=== PATIENT | female | born 1960 ===

== ENCOUNTER 2018-01-31 16:08 | Inpatient (IN) | payer OTHER ==
[2018-01-31 19:42] LABS: ADD MAN DIFF? NO
[2018-01-31] MEDS: VANCOMYCIN 1 GM (PMX) 250 ML IVPB (19:49)
[2018-01-31] MEDS: SODIUM CHLORIDE 0.9% 1L BAG IV* (19:49)
[2018-01-31] MEDS: morphine 4 MG/ML VIAL IV (19:50)
[2018-01-31] MEDS: ONDANSETRON 4 MG INJ IV (19:50)
[2018-01-31] MEDS: PIPER-TAZO 3.375 GM IV (PMX) 100 ML IVPB (19:50)
[2018-01-31 19:53] LABS: BASOPHILS % 0.2 % (0.0-2.0); EOSINOPHILS % 0.3 % (0.0-7.0); HEMATOCRIT 43.7 % (37.0-47.0); HEMOGLOBIN 14.3 g/dl (12.0-16.0); LYMPHOCYTES # 1.9 10^3/ul (0.8-2.9); LYMPHOCYTES % 18.7 % (15.0-51.0); MEAN CORPUSCULAR HEMOGLOBIN 30.6 pg (29.0-33.0); MEAN CORPUSCULAR HGB CONC 32.7 g/dl (32.0-37.0); MEAN CORPUSCULAR VOLUME 93.6 fl (82.0-101.0); MEAN PLATELET VOLUME 9.7 fl (7.4-10.4); MONOCYTE # 0.6 10^3/ul (0.3-0.9); MONOCYTES % 5.7 % (0.0-11.0); NEUTROPHIL # 7.5 10^3/ul (1.6-7.5); NEUTROPHILS % 74.6 % (39.0-77.0); PLATELET COUNT 264 10^3/UL (140-415); RED BLOOD COUNT 4.67 10^6/ul (4.20-5.40); RED CELL DISTRIBUTION WIDTH 14.3 % (11.5-14.5)
[2018-01-31 20:06] LABS: LACTIC ACID 1.9 mmol/L (0.5-2.0)
[2018-01-31 20:12] LABS: ALANINE AMINOTRANSFERASE 30 IU/L (13-69); ALBUMIN 3.7 g/dl (3.3-4.9); ALKALINE PHOSPHATASE 103 IU/L (42-121); ANION GAP 15 (8-16); ASPARTATE AMINO TRANSFERASE 21 IU/L (15-46); BILIRUBIN,INDIRECT 0.1 mg/dl (0-1.1); BILIRUBIN,TOTAL 0.1 mg/dl (0.2-1.3); BLOOD UREA NITROGEN 17 mg/dl (7-20); CALCIUM 8.9 mg/dl (8.4-10.2); CARBON DIOXIDE 26 mmol/L (21-31); CHLORIDE 106 mmol/L (97-110); CREATININE 0.51 mg/dl (0.44-1.00); GLUCOSE 335 mg/dl (70-220); POTASSIUM 4.2 mmol/L (3.5-5.1); SODIUM 143 mmol/L (135-144); TOTAL PROTEIN 7.4 g/dl (6.1-8.1)
[2018-01-31 20:21] LABS: INR 0.93; PARTIAL THROMBOPLASTIN TIME 23.5 Sec (25.0-35.0); PROTIME 12.5 Sec (11.9-14.9)
[2018-01-31 20:23] LABS: TROPONIN-I < 0.010 ng/ml (0.000-0.120)
[2018-01-31] MEDS ORDERED: ACETAMINOPHEN 325 MG TAB PO (20:30)
[2018-01-31] MEDS ORDERED: ONDANSETRON 4 MG INJ IV (20:30)
[2018-02-01] MEDS ORDERED: HYDROCODONE/APAP (5/325) TAB PO (00:30)
[2018-02-01] MEDS ORDERED: NON-FORMULARY/PATIENT OWN MED (Carvedilol* 25 MG) PO (00:30)
[2018-02-01] MEDS: morphine 2 MG INJ IV ×4 (01:10→21:46)
[2018-02-01 02:03] LABS: LACTIC ACID 1.2 mmol/L (0.5-2.0)
[2018-02-01] MEDS ORDERED: PENDING SANTYL ORDER FOR WOUND CARE XX (03:00)
[2018-02-01] MEDS: VANCOMYCIN 1.25 GM in SOD CHLORIDE 0.9% 250 ML IVPB ×2 (05:31→17:35)
[2018-02-01 07:51] LABS: ADD MAN DIFF? NO
[2018-02-01 07:56] LABS: BASOPHILS % 0.2 % (0.0-2.0); EOSINOPHILS # 0.1 10^3/ul (0.0-0.5); EOSINOPHILS % 0.6 % (0.0-7.0); HEMATOCRIT 38.3 % (37.0-47.0); HEMOGLOBIN 12.2 g/dl (12.0-16.0); LYMPHOCYTES # 2.4 10^3/ul (0.8-2.9); LYMPHOCYTES % 23.5 % (15.0-51.0); MEAN CORPUSCULAR HEMOGLOBIN 30.5 pg (29.0-33.0); MEAN CORPUSCULAR HGB CONC 31.9 g/dl (32.0-37.0); MEAN CORPUSCULAR VOLUME 95.8 fl (82.0-101.0); MEAN PLATELET VOLUME 9.7 fl (7.4-10.4); MONOCYTE # 0.7 10^3/ul (0.3-0.9); MONOCYTES % 6.7 % (0.0-11.0); NEUTROPHILS % 68.7 % (39.0-77.0); PLATELET COUNT 220 10^3/UL (140-415); RED CELL DISTRIBUTION WIDTH 14.6 % (11.5-14.5)
[2018-02-01 07:56] LABS: WHITE BLOOD COUNT 10.1 10^3/ul (4.8-10.8)
[2018-02-01] MEDS: INSULIN ASPART [NOVOLOG] 3 ML PEN SC ×5 (07:58→20:53)
[2018-02-01] MEDS: INSULIN GLARGINE [LANTus] (100 UNITS/ML) SYG SC ×2 (07:59→20:28)
[2018-02-01 08:24] LABS: ALANINE AMINOTRANSFERASE 25 IU/L (13-69); ALBUMIN 2.8 g/dl (3.3-4.9); ALBUMIN/GLOBULIN RATIO 0.87; ALKALINE PHOSPHATASE 65 IU/L (42-121); ANION GAP 9 (8-16); ASPARTATE AMINO TRANSFERASE 19 IU/L (15-46); BILIRUBIN,INDIRECT 0.1 mg/dl (0-1.1); BILIRUBIN,TOTAL 0.1 mg/dl (0.2-1.3); BLOOD UREA NITROGEN 14 mg/dl (7-20); CALCIUM 8.1 mg/dl (8.4-10.2); CARBON DIOXIDE 27 mmol/L (21-31); CHLORIDE 112 mmol/L (97-110); CREATININE 0.58 mg/dl (0.44-1.00); GLUCOSE 155 mg/dl (70-220); POTASSIUM 3.8 mmol/L (3.5-5.1); SODIUM 144 mmol/L (135-144)
[2018-02-01 08:38] LABS: HEMOGLOBIN A1C 7.9 % (0-5.9)
[2018-02-01] MEDS: FOLIC ACID 1 MG TAB PO (08:39)
[2018-02-01] MEDS: CEFEPIME 1GM/50 ML (PMX) 50 ML IVPB ×2 (08:39→20:42)
[2018-02-01] MEDS ORDERED: VANCOMYCIN IV PER PHARMACY XX (09:00)
[2018-02-01 10:24] LABS: ADD UMIC NO; UR ASCORBIC ACID NEGATIVE (NEGATIVE); UR BILIRUBIN (Dip) NEGATIVE (NEGATIVE); UR BLOOD (Dip) NEGATIVE (NEGATIVE); UR CLARITY CLEAR (CLEAR); UR COLOR YELLOW (YELLOW); UR GLUCOSE (Dip) NEGATIVE (NEGATIVE); UR KETONES (Dip) NEGATIVE (NEGATIVE); UR LEUKOCYTE ESTERASE (Dip) NEGATIVE Leu/ul (NEGATIVE); UR NITRITE (Dip) NEGATIVE (NEGATIVE); UR TOTAL PROTEIN (Dip) NEGATIVE (NEGATIVE); UR UROBILINOGEN (Dip) NEGATIVE (NEGATIVE)
[2018-02-01] MEDS ORDERED: GLUCOSE GEL 15 GRAM TUBE PO ×2 (10:30→10:31)
[2018-02-01] MEDS ORDERED: GLUCAGON 1 MG INJ IM (10:30)
[2018-02-01] MEDS ORDERED: GLUCOSE GEL 15 GRAM TUBE BUCCAL (10:30)
[2018-02-01] MEDS ORDERED: DEXTROSE 50% 50 ML SYRINGE IV ×2 (10:30)
[2018-02-01] MEDS: LOSARTAN 25 MG TAB PO (15:21)
[2018-02-01] MEDS ORDERED: morphine LIQ (10 MG/5 ML) CUP PO (17:30)
[2018-02-01] MEDS: TETANUS IMMUNE GLOB 250 UNIT SYG IM (17:46)
[2018-02-01] MEDS ORDERED: INSULIN ASPART [NOVOLOG] 3 ML PEN SC (18:05)
[2018-02-01] MEDS ORDERED: HEPARIN 5,000 UNIT/0.5 ML VIAL (19:56)
[2018-02-01] MEDS ORDERED: LACTOBACILLUS RHAMNOSUS CAP (19:56)
[2018-02-01] MEDS: LACTOBACILLUS RHAMNOSUS CAP PO (20:42)
[2018-02-01] MEDS: HEPARIN 5,000 UNIT/0.5 ML VIAL SC (20:42)
[2018-02-01] MEDS: LATANOPROST 0.005% 2.5 ML OPH BOTH EYES (22:41)
[2018-02-01] MEDS: NYSTATIN 30 GM POWDER BTL TOP (22:43)
[2018-02-01] MEDS: COLLAGENASE 5 GM (UD JAR) TOP (22:43)
[2018-02-02] MEDS: ACCU-CHEK XX (02:00)
[2018-02-02] MEDS ORDERED: ACCU-CHEK XX (02:00)
[2018-02-02 06:02] LABS: ADD MAN DIFF? NO
[2018-02-02 06:03] LABS: BASOPHILS % 0.2 % (0.0-2.0); EOSINOPHILS # 0.1 10^3/ul (0.0-0.5); EOSINOPHILS % 0.8 % (0.0-7.0); HEMATOCRIT 40.3 % (37.0-47.0); HEMOGLOBIN 12.8 g/dl (12.0-16.0); LYMPHOCYTES # 2.7 10^3/ul (0.8-2.9); LYMPHOCYTES % 30.1 % (15.0-51.0); MEAN CORPUSCULAR HEMOGLOBIN 30.5 pg (29.0-33.0); MEAN CORPUSCULAR HGB CONC 31.8 g/dl (32.0-37.0); MEAN CORPUSCULAR VOLUME 96.2 fl (82.0-101.0); MEAN PLATELET VOLUME 9.4 fl (7.4-10.4); MONOCYTE # 0.7 10^3/ul (0.3-0.9); MONOCYTES % 7.7 % (0.0-11.0); NEUTROPHIL # 5.4 10^3/ul (1.6-7.5); NEUTROPHILS % 60.6 % (39.0-77.0); PLATELET COUNT 211 10^3/UL (140-415); RED BLOOD COUNT 4.19 10^6/ul (4.20-5.40); RED CELL DISTRIBUTION WIDTH 14.9 % (11.5-14.5)
[2018-02-02 06:03] LABS: WHITE BLOOD COUNT 8.9 10^3/ul (4.8-10.8)
[2018-02-02 06:28] LABS: ANION GAP 8 (8-16); BLOOD UREA NITROGEN 17 mg/dl (7-20); CALCIUM 8.9 mg/dl (8.4-10.2); CARBON DIOXIDE 30 mmol/L (21-31); CHLORIDE 110 mmol/L (97-110); CREATININE 0.58 mg/dl (0.44-1.00); GLUCOSE 120 mg/dl (70-220); POTASSIUM 3.9 mmol/L (3.5-5.1); SODIUM 144 mmol/L (135-144)
[2018-02-02 06:37] LABS: VANCOMYCIN,TROUGH 12.3 ug/ml (10.0-20.0)
[2018-02-02] MEDS: morphine 2 MG INJ IV ×2 (06:45→20:46)
[2018-02-02] MEDS: INSULIN ASPART [NOVOLOG] 3 ML PEN SC ×7 (08:00→21:00)
[2018-02-02] MEDS: VANCOMYCIN 1.25 GM in SOD CHLORIDE 0.9% 250 ML IVPB ×2 (08:14→17:10)
[2018-02-02] MEDS: HEPARIN 5,000 UNIT/0.5 ML VIAL SC ×2 (08:16→21:28)
[2018-02-02] MEDS: LOSARTAN 25 MG TAB PO (08:17)
[2018-02-02] MEDS: LACTOBACILLUS RHAMNOSUS CAP PO ×2 (08:17→21:27)
[2018-02-02] MEDS: FOLIC ACID 1 MG TAB PO (08:17)
[2018-02-02] MEDS: CEFEPIME 1GM/50 ML (PMX) 50 ML IVPB ×2 (08:18→21:25)
[2018-02-02] MEDS: NYSTATIN 30 GM POWDER BTL TOP ×2 (12:00→21:35)
[2018-02-02] MEDS: COLLAGENASE 5 GM (UD JAR) TOP (12:11)
[2018-02-02] MEDS: DICLOFENAC SODIUM 1% GEL 100 GM TUBE TP ×2 (17:06→21:25)
[2018-02-02] MEDS: INSULIN GLARGINE [LANTus] (100 UNITS/ML) SYG SC (21:26)
[2018-02-02] MEDS: LATANOPROST 0.005% 2.5 ML OPH BOTH EYES (21:36)
[2018-02-03] MEDS: ACCU-CHEK XX ×3 (02:00→21:00)
[2018-02-03] MEDS: morphine 2 MG INJ IV (06:11)
[2018-02-03] MEDS: VANCOMYCIN 1.25 GM in SOD CHLORIDE 0.9% 250 ML IVPB ×2 (06:11→17:10)
[2018-02-03 06:26] LABS: ADD MAN DIFF? NO
[2018-02-03 06:27] LABS: BASOPHILS % 0.2 % (0.0-2.0); EOSINOPHILS # 0.1 10^3/ul (0.0-0.5); EOSINOPHILS % 0.6 % (0.0-7.0); HEMATOCRIT 39.3 % (37.0-47.0); HEMOGLOBIN 12.9 g/dl (12.0-16.0); LYMPHOCYTES # 2.1 10^3/ul (0.8-2.9); LYMPHOCYTES % 24.5 % (15.0-51.0); MEAN CORPUSCULAR HEMOGLOBIN 30.9 pg (29.0-33.0); MEAN CORPUSCULAR HGB CONC 32.8 g/dl (32.0-37.0); MEAN CORPUSCULAR VOLUME 94.2 fl (82.0-101.0); MEAN PLATELET VOLUME 9.7 fl (7.4-10.4); MONOCYTE # 0.7 10^3/ul (0.3-0.9); MONOCYTES % 8.1 % (0.0-11.0); NEUTROPHIL # 5.8 10^3/ul (1.6-7.5); NEUTROPHILS % 66.3 % (39.0-77.0); PLATELET COUNT 220 10^3/UL (140-415); RED BLOOD COUNT 4.17 10^6/ul (4.20-5.40); RED CELL DISTRIBUTION WIDTH 14.6 % (11.5-14.5)
[2018-02-03 06:27] LABS: WHITE BLOOD COUNT 8.7 10^3/ul (4.8-10.8)
[2018-02-03 06:48] LABS: PROTIME 13.3 Sec (11.9-14.9)
[2018-02-03 07:02] LABS: ANION GAP 9 (8-16); BLOOD UREA NITROGEN 11 mg/dl (7-20); CALCIUM 8.5 mg/dl (8.4-10.2); CARBON DIOXIDE 31 mmol/L (21-31); CHLORIDE 104 mmol/L (97-110); CREATININE 0.49 mg/dl (0.44-1.00); GLUCOSE 170 mg/dl (70-220); SODIUM 141 mmol/L (135-144)
[2018-02-03] MEDS: INSULIN ASPART [NOVOLOG] 3 ML PEN SC ×7 (08:00→20:45)
[2018-02-03] MEDS: HEPARIN 5,000 UNIT/0.5 ML VIAL SC ×2 (08:08→20:48)
[2018-02-03] MEDS: DICLOFENAC SODIUM 1% GEL 100 GM TUBE TP ×4 (08:12→20:48)
[2018-02-03] MEDS: CEFEPIME 1GM/50 ML (PMX) 50 ML IVPB ×2 (08:14→22:13)
[2018-02-03] MEDS: FOLIC ACID 1 MG TAB PO (08:15)
[2018-02-03] MEDS: LOSARTAN 25 MG TAB PO (08:15)
[2018-02-03] MEDS: LACTOBACILLUS RHAMNOSUS CAP PO ×2 (08:15→20:46)
[2018-02-03] MEDS: COLLAGENASE 5 GM (UD JAR) TOP (08:15)
[2018-02-03] MEDS: NYSTATIN 30 GM POWDER BTL TOP ×2 (08:26→20:49)
[2018-02-03] MEDS: POTASSIUM CHLORIDE 100 ML IVPB ×3 (14:06→22:59)
[2018-02-03] MEDS: POTASSIUM CHLORIDE (SR) 20 MEQ TAB PO (14:06)
[2018-02-03] MEDS: metFORMIN 500 MG TAB PO ×2 (14:06→17:05)
[2018-02-03] MEDS: LATANOPROST 0.005% 2.5 ML OPH BOTH EYES (20:46)
[2018-02-03] MEDS: INSULIN GLARGINE [LANTus] (100 UNITS/ML) SYG SC (20:46)
[2018-02-04] MEDS: ACCU-CHEK XX ×5 (02:00→20:30)
[2018-02-04 05:18] LABS: ADD MAN DIFF? NO
[2018-02-04] MEDS: VANCOMYCIN 1.25 GM in SOD CHLORIDE 0.9% 250 ML IVPB ×2 (05:30→18:07)
[2018-02-04 05:35] LABS: BASOPHILS % 0.1 % (0.0-2.0); EOSINOPHILS # 0.1 10^3/ul (0.0-0.5); EOSINOPHILS % 0.9 % (0.0-7.0); HEMOGLOBIN 12.4 g/dl (12.0-16.0); LYMPHOCYTES % 26.7 % (15.0-51.0); MEAN CORPUSCULAR HEMOGLOBIN 30.8 pg (29.0-33.0); MEAN CORPUSCULAR HGB CONC 32.6 g/dl (32.0-37.0); MEAN CORPUSCULAR VOLUME 94.5 fl (82.0-101.0); MEAN PLATELET VOLUME 9.8 fl (7.4-10.4); MONOCYTE # 0.6 10^3/ul (0.3-0.9); NEUTROPHIL # 4.9 10^3/ul (1.6-7.5); PLATELET COUNT 218 10^3/UL (140-415); RED BLOOD COUNT 4.02 10^6/ul (4.20-5.40); RED CELL DISTRIBUTION WIDTH 14.6 % (11.5-14.5)
[2018-02-04 05:35] LABS: WHITE BLOOD COUNT 7.7 10^3/ul (4.8-10.8)
[2018-02-04 06:07] LABS: ALANINE AMINOTRANSFERASE 35 IU/L (13-69); ALBUMIN 2.6 g/dl (3.3-4.9); ALBUMIN/GLOBULIN RATIO 0.86; ALKALINE PHOSPHATASE 62 IU/L (42-121); ANION GAP 8 (8-16); ASPARTATE AMINO TRANSFERASE 28 IU/L (15-46); BILIRUBIN,INDIRECT 0.4 mg/dl (0-1.1); BILIRUBIN,TOTAL 0.4 mg/dl (0.2-1.3); BLOOD UREA NITROGEN 12 mg/dl (7-20); CALCIUM 8.5 mg/dl (8.4-10.2); CARBON DIOXIDE 29 mmol/L (21-31); CHLORIDE 108 mmol/L (97-110); CREATININE 0.75 mg/dl (0.44-1.00); GLUCOSE 154 mg/dl (70-220); POTASSIUM 3.5 mmol/L (3.5-5.1); SODIUM 141 mmol/L (135-144); TOTAL PROTEIN 5.6 g/dl (6.1-8.1)
[2018-02-04 06:25] LABS: MAGNESIUM 1.9 mg/dl (1.7-2.5)
[2018-02-04] MEDS: INSULIN ASPART [NOVOLOG] 3 ML PEN SC ×7 (07:51→20:26)
[2018-02-04] MEDS: FOLIC ACID 1 MG TAB PO (08:17)
[2018-02-04] MEDS: metFORMIN 500 MG TAB PO ×2 (08:17→17:18)
[2018-02-04] MEDS: HEPARIN 5,000 UNIT/0.5 ML VIAL SC ×2 (08:17→20:25)
[2018-02-04] MEDS: LACTOBACILLUS RHAMNOSUS CAP PO ×2 (08:17→20:23)
[2018-02-04] MEDS: COLLAGENASE 5 GM (UD JAR) TOP (08:18)
[2018-02-04] MEDS: DICLOFENAC SODIUM 1% GEL 100 GM TUBE TP ×4 (08:19→20:29)
[2018-02-04] MEDS: NYSTATIN 30 GM POWDER BTL TOP ×2 (08:19→20:29)
[2018-02-04] MEDS: CEFEPIME 1GM/50 ML (PMX) 50 ML IVPB ×2 (08:19→21:21)
[2018-02-04] MEDS: LOSARTAN 25 MG TAB PO (08:19)
[2018-02-04] MEDS: MELOXICAM 15 MG TAB PO (11:54)
[2018-02-04] MEDS: POTASSIUM CHLORIDE (SR) 20 MEQ TAB PO (11:54)
[2018-02-04] MEDS: DOCUSATE SODIUM 100 MG CAP PO (18:45)
[2018-02-04] MEDS: INSULIN GLARGINE [LANTus] (100 UNITS/ML) SYG SC (20:20)
[2018-02-04] MEDS: LATANOPROST 0.005% 2.5 ML OPH BOTH EYES (20:25)
[2018-02-04] MEDS: morphine 2 MG INJ IV (20:27)
[2018-02-05] MEDS: ACCU-CHEK XX ×5 (02:00→20:30)
[2018-02-05 06:39] LABS: VANCOMYCIN,TROUGH 24.4 ug/ml (10.0-20.0)
[2018-02-05] MEDS: INSULIN ASPART [NOVOLOG] 3 ML PEN SC ×7 (08:00→20:30)
[2018-02-05] MEDS: CEFEPIME 1GM/50 ML (PMX) 50 ML IVPB ×2 (08:01→20:29)
[2018-02-05] MEDS: DICLOFENAC SODIUM 1% GEL 100 GM TUBE TP ×4 (08:01→20:23)
[2018-02-05] MEDS: FOLIC ACID 1 MG TAB PO (08:02)
[2018-02-05] MEDS: metFORMIN 500 MG TAB PO ×2 (08:02→17:17)
[2018-02-05] MEDS: LACTOBACILLUS RHAMNOSUS CAP PO ×2 (08:02→20:20)
[2018-02-05] MEDS: HEPARIN 5,000 UNIT/0.5 ML VIAL SC ×2 (08:04→20:20)
[2018-02-05] MEDS: COLLAGENASE 5 GM (UD JAR) TOP (08:07)
[2018-02-05] MEDS: LOSARTAN 50 MG TAB PO (08:07)
[2018-02-05] MEDS: NYSTATIN 30 GM POWDER BTL TOP ×2 (08:07→20:22)
[2018-02-05] MEDS: INDOMETHACIN 25 MG PO ×2 (12:42→20:22)
[2018-02-05] MEDS: LACTULOSE 30ML CUP PO ×2 (15:10→20:20)
[2018-02-05] MEDS: VANCOMYCIN 1.5 GM in SOD CHLORIDE 0.9% 250 ML IVPB (15:11)
[2018-02-05] MEDS: FAMOTIDINE 20 MG TAB PO (20:21)
[2018-02-05] MEDS: LATANOPROST 0.005% 2.5 ML OPH BOTH EYES (20:22)
[2018-02-05] MEDS: DOCUSATE SODIUM 100 MG CAP PO (20:22)
[2018-02-05] MEDS: traMADol 50 MG TAB PO (20:25)
[2018-02-05] MEDS: INSULIN GLARGINE [LANTus] (100 UNITS/ML) SYG SC (20:28)
[2018-02-06] MEDS: ACCU-CHEK XX ×5 (01:15→21:00)
[2018-02-06 05:28] LABS: ADD MAN DIFF? NO
[2018-02-06 05:33] LABS: WHITE BLOOD COUNT 5.2 10^3/ul (4.8-10.8)
[2018-02-06 05:33] LABS: BASOPHILS % 0.2 % (0.0-2.0); EOSINOPHILS # 0.1 10^3/ul (0.0-0.5); EOSINOPHILS % 1.5 % (0.0-7.0); HEMATOCRIT 36.2 % (37.0-47.0); HEMOGLOBIN 11.6 g/dl (12.0-16.0); LYMPHOCYTES # 1.5 10^3/ul (0.8-2.9); LYMPHOCYTES % 28.6 % (15.0-51.0); MEAN CORPUSCULAR HEMOGLOBIN 30.2 pg (29.0-33.0); MEAN CORPUSCULAR VOLUME 94.3 fl (82.0-101.0); MEAN PLATELET VOLUME 9.9 fl (7.4-10.4); MONOCYTE # 0.5 10^3/ul (0.3-0.9); NEUTROPHIL # 3.1 10^3/ul (1.6-7.5); NEUTROPHILS % 59.5 % (39.0-77.0); PLATELET COUNT 218 10^3/UL (140-415); RED BLOOD COUNT 3.84 10^6/ul (4.20-5.40); RED CELL DISTRIBUTION WIDTH 14.2 % (11.5-14.5)
[2018-02-06 06:05] LABS: ANION GAP 11 (8-16); BLOOD UREA NITROGEN 11 mg/dl (7-20); CALCIUM 8.4 mg/dl (8.4-10.2); CARBON DIOXIDE 25 mmol/L (21-31); CHLORIDE 106 mmol/L (97-110); CREATININE 0.72 mg/dl (0.44-1.00); GLUCOSE 116 mg/dl (70-220); MAGNESIUM 1.6 mg/dl (1.7-2.5); POTASSIUM 3.8 mmol/L (3.5-5.1); SODIUM 138 mmol/L (135-144)
[2018-02-06] MEDS: INSULIN ASPART [NOVOLOG] 3 ML PEN SC ×7 (07:58→21:00)
[2018-02-06] MEDS: HEPARIN 5,000 UNIT/0.5 ML VIAL SC ×2 (08:01→21:04)
[2018-02-06] MEDS: CEFEPIME 1GM/50 ML (PMX) 50 ML IVPB ×2 (08:01→21:01)
[2018-02-06] MEDS: LACTOBACILLUS RHAMNOSUS CAP PO ×2 (08:02→21:05)
[2018-02-06] MEDS: LACTULOSE 30ML CUP PO ×2 (08:02→21:04)
[2018-02-06] MEDS: LOSARTAN 50 MG TAB PO (08:02)
[2018-02-06] MEDS: metFORMIN 500 MG TAB PO ×2 (08:02→17:22)
[2018-02-06] MEDS: FAMOTIDINE 20 MG TAB PO ×2 (08:02→21:05)
[2018-02-06] MEDS: FOLIC ACID 1 MG TAB PO (08:03)
[2018-02-06] MEDS: NYSTATIN 30 GM POWDER BTL TOP ×2 (08:03→21:10)
[2018-02-06] MEDS: DOCUSATE SODIUM 100 MG CAP PO ×2 (08:03→21:05)
[2018-02-06] MEDS: DICLOFENAC SODIUM 1% GEL 100 GM TUBE TP ×4 (08:03→21:05)
[2018-02-06] MEDS: COLLAGENASE 5 GM (UD JAR) TOP (08:03)
[2018-02-06] MEDS: MAGNESIUM SULFATE 2 GM/50 ML 50 ML IVPB (08:46)
[2018-02-06] MEDS: morphine 2 MG INJ IV (10:45)
[2018-02-06] MEDS: ONDANSETRON 4 MG INJ IV (12:28)
[2018-02-06] MEDS: VANCOMYCIN 1.5 GM in SOD CHLORIDE 0.9% 250 ML IVPB (15:33)
[2018-02-06] MEDS: LIDOCAINE 1% (MPF) 5 ML VIAL SC (16:05)
[2018-02-06] MEDS: SOD CHLORIDE 0.9% 100 ML (16:40)
[2018-02-06] MEDS: INSULIN GLARGINE [LANTus] (100 UNITS/ML) SYG SC (21:04)
[2018-02-06] MEDS: LATANOPROST 0.005% 2.5 ML OPH BOTH EYES (21:05)
[2018-02-06] MEDS: INDOMETHACIN 25 MG PO (21:08)
[2018-02-07] MEDS: ACCU-CHEK XX ×6 (01:41→20:32)
[2018-02-07] MEDS: INSULIN ASPART [NOVOLOG] 3 ML PEN SC ×7 (08:00→20:28)
[2018-02-07] MEDS: LACTOBACILLUS RHAMNOSUS CAP PO ×2 (08:32→20:27)
[2018-02-07] MEDS: DOCUSATE SODIUM 100 MG CAP PO ×2 (08:32→20:27)
[2018-02-07] MEDS: LACTULOSE 30ML CUP PO ×2 (08:32→20:27)
[2018-02-07] MEDS: FAMOTIDINE 20 MG TAB PO ×2 (08:33→20:28)
[2018-02-07] MEDS: metFORMIN 500 MG TAB PO ×2 (08:33→17:27)
[2018-02-07] MEDS: FOLIC ACID 1 MG TAB PO (08:33)
[2018-02-07] MEDS: HEPARIN 5,000 UNIT/0.5 ML VIAL SC ×2 (08:38→20:25)
[2018-02-07] MEDS: CEFEPIME 1GM/50 ML (PMX) 50 ML IVPB ×2 (08:40→20:28)
[2018-02-07] MEDS: LOSARTAN 50 MG TAB PO (08:40)
[2018-02-07] MEDS: NYSTATIN 30 GM POWDER BTL TOP ×2 (09:00→20:30)
[2018-02-07] MEDS: DICLOFENAC SODIUM 1% GEL 100 GM TUBE TP ×5 (09:00→20:31)
[2018-02-07] MEDS: INSULIN GLARGINE [LANTus] (100 UNITS/ML) SYG SC (20:24)
[2018-02-07] MEDS: L ACIDOPHIL/B LACTIS/B LONGUM CAPSULE PO (20:28)
[2018-02-07] MEDS: LATANOPROST 0.005% 2.5 ML OPH BOTH EYES (20:28)
[2018-02-07] MEDS: AMPICILLIN 1 GM/NS (PMX) 50 ML IVPB (21:22)
[2018-02-08] MEDS: AMPICILLIN 1 GM/NS (PMX) 50 ML IVPB ×3 (05:22→22:39)
[2018-02-08] MEDS: INSULIN ASPART [NOVOLOG] 3 ML PEN SC ×7 (08:00→21:00)
[2018-02-08] MEDS: L ACIDOPHIL/B LACTIS/B LONGUM CAPSULE PO ×2 (08:09→21:19)
[2018-02-08] MEDS: FAMOTIDINE 20 MG TAB PO ×2 (08:09→21:20)
[2018-02-08] MEDS: LACTULOSE 30ML CUP PO ×2 (08:09→21:00)
[2018-02-08] MEDS: FOLIC ACID 1 MG TAB PO (08:09)
[2018-02-08] MEDS: metFORMIN 500 MG TAB PO ×2 (08:09→17:33)
[2018-02-08] MEDS: LACTOBACILLUS RHAMNOSUS CAP PO ×2 (08:12→21:19)
[2018-02-08] MEDS: HEPARIN 5,000 UNIT/0.5 ML VIAL SC ×2 (08:13→21:09)
[2018-02-08] MEDS: DICLOFENAC SODIUM 1% GEL 100 GM TUBE TP ×4 (08:14→21:22)
[2018-02-08] MEDS: CEFEPIME 1GM/50 ML (PMX) 50 ML IVPB ×2 (08:14→21:18)
[2018-02-08] MEDS: DOCUSATE SODIUM 100 MG CAP PO ×2 (08:14→21:00)
[2018-02-08] MEDS: NYSTATIN 30 GM POWDER BTL TOP ×2 (08:14→21:22)
[2018-02-08] MEDS: LOSARTAN 50 MG TAB PO (08:16)
[2018-02-08] MEDS: ACCU-CHEK XX ×4 (08:16→21:00)
[2018-02-08] MEDS: INDOMETHACIN 25 MG PO ×2 (08:25→21:33)
[2018-02-08] MEDS: ONDANSETRON 4 MG INJ IV (11:55)
[2018-02-08] MEDS: INSULIN GLARGINE [LANTus] (100 UNITS/ML) SYG SC (21:11)
[2018-02-08] MEDS: LATANOPROST 0.005% 2.5 ML OPH BOTH EYES (21:18)
[2018-02-09] MEDS: ACCU-CHEK XX ×5 (01:58→21:00)
[2018-02-09] MEDS: HYDROCODONE/APAP (10/325) TAB PO ×2 (02:23→15:37)
[2018-02-09] MEDS: AMPICILLIN 1 GM/NS (PMX) 50 ML IVPB ×3 (06:12→23:02)
[2018-02-09] MEDS: INSULIN ASPART [NOVOLOG] 3 ML PEN SC ×6 (08:00→21:00)
[2018-02-09] MEDS: HEPARIN 5,000 UNIT/0.5 ML VIAL SC ×2 (08:09→21:23)
[2018-02-09] MEDS: metFORMIN 500 MG TAB PO ×2 (08:12→17:27)
[2018-02-09] MEDS: FOLIC ACID 1 MG TAB PO (08:13)
[2018-02-09] MEDS: FAMOTIDINE 20 MG TAB PO ×2 (08:13→21:21)
[2018-02-09] MEDS: LOSARTAN 50 MG TAB PO (08:13)
[2018-02-09] MEDS: INDOMETHACIN 25 MG PO (08:13)
[2018-02-09] MEDS: LACTOBACILLUS RHAMNOSUS CAP PO ×2 (08:13→21:22)
[2018-02-09] MEDS: L ACIDOPHIL/B LACTIS/B LONGUM CAPSULE PO ×2 (08:25→21:21)
[2018-02-09] MEDS: CEFEPIME 1GM/50 ML (PMX) 50 ML IVPB ×2 (08:25→21:21)
[2018-02-09] MEDS: LACTULOSE 30ML CUP PO ×2 (08:25→21:00)
[2018-02-09] MEDS: DOCUSATE SODIUM 100 MG CAP PO ×2 (08:25→21:21)
[2018-02-09] MEDS: DICLOFENAC SODIUM 1% GEL 100 GM TUBE TP ×4 (11:50→21:24)
[2018-02-09] MEDS: NYSTATIN 30 GM POWDER BTL TOP ×2 (11:51→21:24)
[2018-02-09] MEDS: ONDANSETRON 4 MG INJ IV ×2 (13:21→21:07)
[2018-02-09] MEDS: INSULIN GLARGINE [LANTus] (100 UNITS/ML) SYG SC (20:00)
[2018-02-09] MEDS: ACETAMINOPHEN 325 MG TAB PO (21:08)
[2018-02-09] MEDS: LATANOPROST 0.005% 2.5 ML OPH BOTH EYES (21:21)
[2018-02-10] MEDS: ACCU-CHEK XX (02:00)
[2018-02-10] MEDS: AMPICILLIN 1 GM/NS (PMX) 50 ML IVPB (06:08)
== END 2018-02-10 07:50 | disposition home health service (06) | DRG 638 ==
LOC: PP2 20:06 → E/R 16:08
PROC: 02HV33Z Insertion of Infusion Device into Superior Vena Cava, Percutaneous Approach (ICD-10-PCS; principal; 2018-02-06)
DX: E11.622 Type 2 diabetes mellitus with other skin ulcer (principal); L97.929 Non-pressure chronic ulcer of unspecified part of left lower leg with unspecified severity; Z68.42 Body mass index [BMI] 45.0-49.9, adult; E88.81 Metabolic syndrome and other insulin resistance; E66.01 Morbid (severe) obesity due to excess calories; E87.6 Hypokalemia; I10 Essential (primary) hypertension; L08.9 Local infection of the skin and subcutaneous tissue, unspecified; M17.0 Bilateral primary osteoarthritis of knee; B96.20 Unspecified Escherichia coli [E. coli] as the cause of diseases classified elsewhere; B96.5 Pseudomonas (aeruginosa) (mallei) (pseudomallei) as the cause of diseases classified elsewhere; B96.4 Proteus (mirabilis) (morganii) as the cause of diseases classified elsewhere; Z16.12 Extended spectrum beta lactamase (ESBL) resistance
CPT/HCPCS: 36415; 36569; 71045; 76937; 80048; 80053; 80202; 81003; 82962; 83036; 83605; 83735; 84484; 85025; 85610; 85730; 87040; 87070; 87086; 90389; 93005; 96374; 96375; 97110; 97161; 97530; 99285-25